=== PATIENT | male | born 1995 | race Caucasian/White ===

== ENCOUNTER 2021-07-06 01:19 | Emergency (ER) | payer SELFPAY ==
[~2021-07-06] VITALS: Ht 188 cm; Wt 86.2 kg
[2021-07-06 01:25] VITALS: BP 124/74
--- NOTE | 2021-07-06 01:25 | NUR ---
TO [facility]
[2021-07-06] MEDS ORDERED: LIDOCAINE MPF 1% 10 MG/ML VIAL INJ ONE (01:50)
--- NOTE | 2021-07-06 02:39 | NUR ---
d/c with VSS. d/c education given. opportunity to ask questions given and answered. no rx given.
[2021-07-06 02:40] VITALS: BP 139/63
== END 2021-07-06 02:39 | disposition home or self-care (01) ==
LOC: MED 01:19
DX: S01.112A Laceration without foreign body of left eyelid and periocular area, initial encounter (principal); W22.8XXA Striking against or struck by other objects, initial encounter; Y93.89 Activity, other specified; Y92.89 Other specified places as the place of occurrence of the external cause; Y99.8 Other external cause status
CPT/HCPCS: 12013; 99282

== ENCOUNTER 2021-07-13 21:46 | Emergency (ER) | payer OTHER ==
[~2021-07-13] VITALS: Ht 188 cm; Wt 85.8 kg
[2021-07-13 22:54] VITALS: BP 114/62
--- NOTE | 2021-07-13 22:59 | NUR ---
PT IN LOBBY.
--- NOTE | 2021-07-13 23:32 | NUR ---
PT TO CHAIR A
--- NOTE | 2021-07-14 00:09 | NUR ---
PT SEEN AND EVALUATED BY DR. ALBERTS. NO NURSING INTERVENTIONS NEEDS. PT CLEARED FOR DISCHARGE AT THIS TIME.
== END 2021-07-14 00:09 | disposition home or self-care (01) ==
LOC: MED 21:46
DX: S01.112D Laceration without foreign body of left eyelid and periocular area, subsequent encounter (principal); X58.XXXD Exposure to other specified factors, subsequent encounter
CPT/HCPCS: 99281